=== PATIENT | female | born 1990 | race Caucasian/White ===

== ENCOUNTER 2017-12-23 20:24 | Emergency (ER) | payer MEDICAID ==
[~2017-12-23] VITALS: Ht 160 cm; Wt 50.0 kg
[~2017-12-23 20:24] MED LIST: NO HOME MEDS; ONDA8TAB9 PO
[2017-12-23 21:18] LABS: BASOPHILS # (AUTO) 0.1 X10'3 (0-0.2); BASOPHILS % (AUTO) 1.4 % (0-1); EOSINOPHILS # (AUTO) 0.1 X10'3 (0-0.9); EOSINOPHILS % (AUTO) 1.4 % (0-6); HEMATOCRIT 43.8 % (35.0-45.0); HEMOGLOBIN 15.2 g/dl (12.0-16.0); LYMPHOCYTES # (AUTO) 2.9 X10'3 (1.1-4.8); LYMPHOCYTES % (AUTO) 35.1 % (21-51); MEAN CORPUSCULAR HEMOGLOBIN 31.1 PG (27.0-31.0); MEAN CORPUSCULAR HGB CONC 34.7 % (33.0-36.5); MEAN CORPUSCULAR VOLUME 89.6 FL (78-98); MONOCYTES # (AUTO) 0.4 X10'3 (0-0.9); MONOCYTES % (AUTO) 4.8 % (2-12); NEUTROPHILS # (AUTO) 4.8 X10'3 (1.8-7.7); NEUTROPHILS % (AUTO) 57.3 % (42-75); PLATELET COUNT 168 X10'3 (140-440); RED BLOOD COUNT 4.89 X10'6 (4.20-5.60); RED CELL DISTRIBUTION WIDTH 13.1 % (11.5-14.5); WHITE BLOOD COUNT 8.3 X10'3 (4.5-11.0)
[2017-12-23 21:19] LABS: URINE HCG NEGATIVE (NEG)
[2017-12-23 21:22] LABS: CLARITY,URINE SLIGHTLY CLOUDY (Clear); COLOR,URINE YELLOW (Yellow); GLUCOSE, URINE NEGATIVE (Neg); KETONES,URINE NEGATIVE (Neg); LEUKOCYTE ESTERASE ,URINE NEGATIVE (Neg); NITRITES, URINE NEGATIVE (Neg); OCCULT BLOOD,URINE NEGATIVE (Neg); PROTEIN,URINE NEGATIVE (Neg); UROBILINOGEN,URINE 0.2 E.U/dL (0.2-1.0)
[2017-12-23 21:28] LABS: PROTHROMBIN TIME 10.8 SECONDS (9.0-12.0)
[2017-12-23 21:31] LABS: AMORPHOUS PHOSPHATES 3+; BACTERIA,URINE FEW /HPF (Neg); RBC,URINE NONE SEEN /HPF (0-2); SQUAMOUS EPITHELIAL CELL,UR FEW /LPF (FEW); UA COLLECTION TYPE CLN CATCH MIDSTREAM; WBC,URINE NONE SEEN /HPF (0-4)
[2017-12-23 21:37] LABS: ALANINE AMINOTRANSFERASE 23 U/L (12-78); ALBUMIN 4.6 G/DL (3.4-5.0); ALBUMIN/GLOBULIN RATIO 1.4 (1.1-1.5); ALKALINE PHOSPHATASE 51 IU/L (46-116); ANION GAP 9 (8-16); ASPARTATE AMINO TRANSFERASE 18 U/L (10-37); BILIRUBIN,TOTAL 0.5 MG/DL (0.1-1.0); BLOOD UREA NITROGEN 13 MG/DL (7-18); BUN/CREATININE RATIO 15.1 (6.6-38.0); CALCIUM 9.2 MG/DL (8.5-10.1); CHLORIDE 104 MMOL/L (99-107); CREATININE 0.86 MG/DL (0.40-0.90); GLUCOSE 103 MG/DL (70-104); POTASSIUM 3.6 MMOL/L (3.5-5.1); SODIUM 142 MMOL/L (135-145); TOTAL CARBON DIOXIDE 29.3 MMOL/L (24-32); TOTAL PROTEIN 7.8 G/DL (6.4-8.2); eGFR 80 ML/MIN
[2017-12-23 23:28] LABS: LIPASE 228 U/L (73-393)
[2017-12-23 23:49] VITALS: BP 119/64
== END 2017-12-23 23:50 | disposition home or self-care (01) ==
LOC: ER 20:25
DX: R10.13 Epigastric pain (principal); R11.0 Nausea; R19.7 Diarrhea, unspecified; F17.200 Nicotine dependence, unspecified, uncomplicated; J45.909 Unspecified asthma, uncomplicated; Z79.899 Other long term (current) drug therapy
CPT/HCPCS: 36415; 80053; 81001; 81025; 83690; 85025; 85610; 99284

== ENCOUNTER 2018-06-16 12:27 | Emergency (ER) | payer MEDICAID ==
[~2018-06-16] VITALS: Ht 160 cm; Wt 47.5 kg
[2018-06-16] MEDS ORDERED: normal saline 1000ML IV soln IVB ONE ×2 (13:05→13:45)
[2018-06-16] MEDS ORDERED: ondansetron/PF 4mg/2ml inj IV ONE (13:05)
[2018-06-16 13:16] LABS: BASOPHILS # (AUTO) 0.1 X10'3 (0-0.2); BASOPHILS % (AUTO) 0.4 % (0-1); EOSINOPHILS # (AUTO) 0.3 X10'3 (0-0.9); EOSINOPHILS % (AUTO) 1.4 % (0-6); HEMOGLOBIN 15.1 g/dl (12.0-16.0); LYMPHOCYTES # (AUTO) 3.3 X10'3 (1.1-4.8); LYMPHOCYTES % (AUTO) 16.2 % (21-51); MEAN CORPUSCULAR HEMOGLOBIN 30.6 PG (27.0-31.0); MEAN CORPUSCULAR HGB CONC 33.6 % (33.0-36.5); MEAN PLATELET VOLUME 8.9 FL (7.4-10.4); MONOCYTES # (AUTO) 0.5 X10'3 (0-0.9); MONOCYTES % (AUTO) 2.4 % (2-12); NEUTROPHILS # (AUTO) 16.2 X10'3 (1.8-7.7); NEUTROPHILS % (AUTO) 79.6 % (42-75); PLATELET COUNT 211 X10'3 (140-440); RED BLOOD COUNT 4.95 X10'6 (4.20-5.60); RED CELL DISTRIBUTION WIDTH 13.2 % (11.5-14.5); WHITE BLOOD COUNT 20.3 X10'3 (4.5-11.0)
[2018-06-16 13:29] LABS: INR 1.1 INR; PROTHROMBIN TIME 10.8 SECONDS (9.0-12.0)
[2018-06-16 13:30] LABS: ALANINE AMINOTRANSFERASE 31 U/L (12-78); ALBUMIN 4.8 G/DL (3.4-5.0); ALBUMIN/GLOBULIN RATIO 1.4 (1.1-1.5); ALKALINE PHOSPHATASE 56 IU/L (46-116); ANION GAP 19 (8-16); ASPARTATE AMINO TRANSFERASE 35 U/L (10-37); BILIRUBIN,TOTAL 0.7 MG/DL (0.1-1.0); BLOOD UREA NITROGEN 14 MG/DL (7-18); BUN/CREATININE RATIO 18.4 (6.6-38.0); CALCIUM 9.3 MG/DL (8.5-10.1); CHLORIDE 104 MMOL/L (99-107); CREATININE 0.76 MG/DL (0.40-0.90); GLUCOSE 69 MG/DL (70-104); POTASSIUM 3.6 MMOL/L (3.5-5.1); SODIUM 143 MMOL/L (135-145); TOTAL CARBON DIOXIDE 20.2 MMOL/L (24-32); TOTAL PROTEIN 8.3 G/DL (6.4-8.2); eGFR > 90 ML/MIN
[2018-06-16 13:31] LABS: ETHANOL < 0.010 GM/DL (0.0-0.010); LIPASE 112 U/L (73-393)
[2018-06-16] MEDS ORDERED: proCHLORperazine 10 MG/2 ml inj IV ONE (13:45)
[2018-06-16] MEDS ORDERED: ONDA8TAB9 PO (14:51)
[2018-06-16 15:05] VITALS: BP 122/72
== END 2018-06-16 15:07 | disposition home or self-care (01) ==
LOC: ER 12:27
DX: R11.2 Nausea with vomiting, unspecified (principal); J45.909 Unspecified asthma, uncomplicated; Z86.69 Personal history of other diseases of the nervous system and sense organs; Z79.899 Other long term (current) drug therapy
CPT/HCPCS: 36415; 80053; 80320; 83690; 85025; 85610; 96360; 96361; 99285; J0780; J2405

== ENCOUNTER 2018-08-18 15:15 | Emergency (ER) | payer MEDICAID ==
[~2018-08-18] VITALS: Ht 157.5 cm; Wt 49.2 kg
[2018-08-18] MEDS: ipratropium/albuterol 3ml nebule NEB ONE (17:57)
[2018-08-18 18:12] LABS: BASOPHILS % (AUTO) 0.5 % (0-1); EOSINOPHILS % (AUTO) 0.1 % (0-6); HEMATOCRIT 45.1 % (35.0-45.0); HEMOGLOBIN 14.9 g/dl (12.0-16.0); LYMPHOCYTES # (AUTO) 0.8 X10'3 (1.1-4.8); MEAN CORPUSCULAR HEMOGLOBIN 29.7 PG (27.0-31.0); MEAN CORPUSCULAR HGB CONC 33.1 % (33.0-36.5); MEAN CORPUSCULAR VOLUME 89.7 FL (78-98); MONOCYTES # (AUTO) 0.5 X10'3 (0-0.9); MONOCYTES % (AUTO) 6.5 % (2-12); NEUTROPHILS # (AUTO) 6.8 X10'3 (1.8-7.7); NEUTROPHILS % (AUTO) 82.9 % (42-75); PLATELET COUNT 159 X10'3 (140-440); RED BLOOD COUNT 5.03 X10'6 (4.20-5.60); RED CELL DISTRIBUTION WIDTH 12.6 % (11.5-14.5); WHITE BLOOD COUNT 8.1 X10'3 (4.5-11.0)
[2018-08-18] MEDS: normal saline 1000ML IV soln IV ONE (18:12)
[2018-08-18] MEDS: methylPREDNISolone sod succ 125mg/2ml vial IV ONE (18:13)
[2018-08-18] MEDS: acetaminophen 325mg tablet PO ONE (18:13)
[2018-08-18] MEDS: acetaminophen 325mg tablet PO STA (18:14)
[2018-08-18 18:24] LABS: ALANINE AMINOTRANSFERASE 18 U/L (12-78); ALBUMIN 4.1 G/DL (3.4-5.0); ALBUMIN/GLOBULIN RATIO 1.1 (1.1-1.5); ALKALINE PHOSPHATASE 54 IU/L (46-116); ANION GAP 11 (8-16); ASPARTATE AMINO TRANSFERASE 16 U/L (10-37); BILIRUBIN,TOTAL 0.4 MG/DL (0.1-1.0); BLOOD UREA NITROGEN 8 MG/DL (7-18); BUN/CREATININE RATIO 8.9 (6.6-38.0); CALCIUM 8.8 MG/DL (8.5-10.1); CHLORIDE 98 MMOL/L (99-107); GLUCOSE 94 MG/DL (70-104); POTASSIUM 3.6 MMOL/L (3.5-5.1); SODIUM 135 MMOL/L (135-145); TOTAL CARBON DIOXIDE 25.9 MMOL/L (24-32); TOTAL PROTEIN 7.9 G/DL (6.4-8.2); eGFR 75 ML/MIN
[2018-08-18] MEDS: albuterol 2.5 MG/3 ML nebule NEB ONE (19:03)
[2018-08-18 19:54] LABS: URINE HCG NEGATIVE (NEG)
[2018-08-18] MEDS ORDERED: ALBU6.7H INH (20:03)
[2018-08-18] MEDS ORDERED: PRED20TA PO (20:03)
[2018-08-18] MEDS ORDERED: TAM75C PO (20:03)
[2018-08-18] MEDS ORDERED: GUAI473S11 PO (20:03)
[2018-08-18 20:04] LABS: CLARITY,URINE CLEAR (Clear); COLOR,URINE YELLOW (Yellow); UA COLLECTION TYPE CLN CATCH MIDSTREAM
[2018-08-18 20:05] LABS: GLUCOSE, URINE NEGATIVE (Neg); KETONES,URINE TRACE mg/dl (Neg); LEUKOCYTE ESTERASE ,URINE TRACE (Neg); NITRITES, URINE NEGATIVE (Neg); OCCULT BLOOD,URINE NEGATIVE (Neg); PH,URINE 5.5 (4.8-8.0); PROTEIN,URINE NEGATIVE (Neg); UROBILINOGEN,URINE 0.2 E.U/dL (0.2-1.0)
[2018-08-18 20:06] LABS: BACTERIA,URINE FEW /HPF (Neg); MUCUS STRANDS MODERATE /LPF (Neg); RBC,URINE 0-2 /HPF (0-2); SQUAMOUS EPITHELIAL CELL,UR FEW /LPF (FEW); WBC,URINE 0-4 /HPF (0-4)
[2018-08-18] MEDS: oseltamivir phos 75mg capsule PO ONE (20:06)
[2018-08-18 20:07] VITALS: BP 113/71
== END 2018-08-18 20:14 | disposition home or self-care (01) ==
LOC: ER 15:15
DX: J09.X2 Influenza due to identified novel influenza A virus with other respiratory manifestations (principal); J45.901 Unspecified asthma with (acute) exacerbation; F17.200 Nicotine dependence, unspecified, uncomplicated; Z79.899 Other long term (current) drug therapy; Z91.018 Allergy to other foods
CPT/HCPCS: 36415; 71045; 80053; 81001; 81025; 83605; 84145; 85025; 87040; 87088; 87502; 87503; 93005; 94640; 94760; 96361; 96374; 99284; J2930; J7030

== ENCOUNTER 2018-10-20 02:04 | Emergency (ER) | payer MEDICAID ==
[~2018-10-20] VITALS: Ht 160 cm; Wt 50.0 kg
[~2018-10-20 02:04] MED LIST changes: +ALBU6.7H INH
[2018-10-20 02:49] LABS: CLARITY,URINE CLEAR (Clear); COLOR,URINE YELLOW (Yellow); GLUCOSE, URINE NEGATIVE (Neg); KETONES,URINE NEGATIVE (Neg); LEUKOCYTE ESTERASE ,URINE LARGE (Neg); NITRITES, URINE NEGATIVE (Neg); OCCULT BLOOD,URINE NEGATIVE (Neg); PH,URINE 5.5 (4.8-8.0); PROTEIN,URINE NEGATIVE (Neg); UROBILINOGEN,URINE 0.2 E.U/dL (0.2-1.0)
[2018-10-20 02:52] LABS: URINE HCG NEGATIVE (NEG)
[2018-10-20 02:59] LABS: ALANINE AMINOTRANSFERASE 14 U/L (12-78); ALBUMIN 4.2 G/DL (3.4-5.0); ALBUMIN/GLOBULIN RATIO 1.4 (1.1-1.5); ALKALINE PHOSPHATASE 50 IU/L (46-116); ANION GAP 8 (8-16); ASPARTATE AMINO TRANSFERASE 13 U/L (10-37); BILIRUBIN,TOTAL 0.3 MG/DL (0.1-1.0); BLOOD UREA NITROGEN 11 MG/DL (7-18); BUN/CREATININE RATIO 14.1 (6.6-38.0); CALCIUM 9.2 MG/DL (8.5-10.1); CHLORIDE 103 MMOL/L (99-107); CREATININE 0.78 MG/DL (0.40-0.90); GLUCOSE 99 MG/DL (70-104); POTASSIUM 3.6 MMOL/L (3.5-5.1); SODIUM 137 MMOL/L (135-145); TOTAL CARBON DIOXIDE 25.8 MMOL/L (24-32); TOTAL PROTEIN 7.3 G/DL (6.4-8.2); eGFR 89 ML/MIN
[2018-10-20 03:00] LABS: UA COLLECTION TYPE CLN CATCH MIDSTREAM
[2018-10-20 03:03] LABS: INR 1.1 INR; PROTHROMBIN TIME 10.8 SECONDS (9.0-12.0)
[2018-10-20 03:03] LABS: BACTERIA,URINE FEW /HPF (Neg); MUCUS STRANDS NONE SEEN /LPF (Neg); RBC,URINE NONE SEEN /HPF (0-2); SQUAMOUS EPITHELIAL CELL,UR MODERATE /LPF (FEW)
[2018-10-20 03:29] LABS: BASOPHILS # (AUTO) 0.1 X10'3 (0-0.2); EOSINOPHILS # (AUTO) 0.1 X10'3 (0-0.9); EOSINOPHILS % (AUTO) 1.6 % (0-6); HEMATOCRIT 42.2 % (35.0-45.0); HEMOGLOBIN 14.5 g/dl (12.0-16.0); LYMPHOCYTES # (AUTO) 1.9 X10'3 (1.1-4.8); LYMPHOCYTES % (AUTO) 31.9 % (21-51); MEAN CORPUSCULAR HEMOGLOBIN 30.6 PG (27.0-31.0); MEAN CORPUSCULAR HGB CONC 34.4 g/dL (33.0-36.5); MEAN CORPUSCULAR VOLUME 88.8 FL (78-98); MEAN PLATELET VOLUME 9.2 FL (7.4-10.4); MONOCYTES # (AUTO) 0.4 X10'3 (0-0.9); NEUTROPHILS # (AUTO) 3.4 X10'3 (1.8-7.7); NEUTROPHILS % (AUTO) 58.5 % (42-75); PLATELET COUNT 175 X10'3 (140-440); RED BLOOD COUNT 4.76 X10'6 (4.20-5.60); RED CELL DISTRIBUTION WIDTH 13.4 % (11.5-14.5); WHITE BLOOD COUNT 5.8 X10'3 (4.5-11.0)
[2018-10-20] MEDS ORDERED: morphine 4 MG/ML inj SYRINge IV ONE (04:05)
[2018-10-20] MEDS ORDERED: normal saline 1000ML IV soln IVB ONE (04:05)
[2018-10-20] MEDS ORDERED: morphine 2 MG/ML inj. syringe IV PRN (04:05)
[2018-10-20] MEDS ORDERED: pantoprazole 40 MG vial IV ONE (04:05)
[2018-10-20 04:17] LABS: LIPASE 298 U/L (73-393)
[2018-10-20 04:19] VITALS: BP 102/67
--- NOTE | 2018-10-20 04:20 | NUR ---
PT GIVEN MORPHINE AND PROTONIX IV. FRIENDS AT BEDSIDE AND ARE HELPFUL AND SUPPORTIVE. PT REPORTING PAIN GOING DOWN TO 3 OUT OF 10. LIPASE ADDED ONTO LABS . AWAITING RESULTS.
--- NOTE | 2018-10-20 04:39 | NUR ---
PT REPORTS HER PAIN STILL AT 3 OR 4 AFTER MS[facility] 30 MIN AGO.
== END 2018-10-20 06:15 | disposition home or self-care (01) ==
LOC: ER 02:05
DX: R10.31 Right lower quadrant pain (principal); R10.32 Left lower quadrant pain; J45.909 Unspecified asthma, uncomplicated; F17.200 Nicotine dependence, unspecified, uncomplicated; Z91.018 Allergy to other foods
CPT/HCPCS: 36415; 80053; 81001; 81025; 83690; 85025; 85610; 87088; 96374; 96375; 99283; C9113; J2270; J7030

== ENCOUNTER 2019-05-20 12:54 | Emergency (ER) | payer MEDICAID ==
[~2019-05-20] VITALS: Ht 167.6 cm; Wt 55.0 kg
[~2019-05-20 12:54] MED LIST changes: -ALBU6.7H INH; +ALBU6.7H9 INH
[2019-05-20 13:05] VITALS: BP 124/77
[2019-05-20] MEDS ORDERED: ACET-812 PO (13:45)
[2019-05-20] MEDS ORDERED: acetaminophen 325mg tablet PO ONE (13:45)
[2019-05-20] MEDS ORDERED: amoxicillin 250mg capsule PO ONE (13:45)
[2019-05-20] MEDS ORDERED: HYDR-3965 PO (13:45)
[2019-05-20] MEDS ORDERED: AMOX500C2 PO (13:45)
== END 2019-05-20 13:57 | disposition home or self-care (01) ==
LOC: ER 12:54
DX: K08.89 Other specified disorders of teeth and supporting structures (principal); J45.909 Unspecified asthma, uncomplicated
CPT/HCPCS: 99283

== ENCOUNTER 2019-05-24 14:54 | Emergency (ER) | payer MEDICAID ==
[~2019-05-24] VITALS: Ht 160 cm; Wt 50.0 kg
[~2019-05-24 14:54] MED LIST changes: +ACET-812 PO; +AMOX500C2 PO; +HYDR-3965 PO
[2019-05-24 14:55] VITALS: BP 110/81
[2019-05-24] MEDS ORDERED: LIDOcaine 1% w/EPI 1:200,000 injection 10mL vial IM ONE (15:10)
[2019-05-24] MEDS ORDERED: BUPIVAcaine/PF 2.5mg/ml (0.25%) 10ml vial IJ ONE (15:10)
[2019-05-24] MEDS ORDERED: amox tr/potassium clavulanate 875/125mg TAB PO ONE (15:10)
[2019-05-24] MEDS ORDERED: LIDOcaine 1% W/epiNEPHrine 1:100,000 20ml vial IJ ONE (15:20)
[2019-05-24] MEDS ORDERED: naproxen 500mg tablet PO ONE (15:50)
[2019-05-24] MEDS ORDERED: HYDROcodone/acetaminophen 10/325mg tab PO ONE (15:50)
[2019-05-24] MEDS ORDERED: NAPR-56 PO (16:10)
[2019-05-24] MEDS ORDERED: AMOX-580 PO (16:10)
[2019-05-24] MEDS ORDERED: HYDR-4383 PO (16:10)
== END 2019-05-24 16:26 | disposition home or self-care (01) ==
LOC: ER 14:54
DX: K05.219 Aggressive periodontitis, localized, unspecified severity (principal); K02.9 Dental caries, unspecified; J45.909 Unspecified asthma, uncomplicated; F17.200 Nicotine dependence, unspecified, uncomplicated; Z91.018 Allergy to other foods
CPT/HCPCS: 64400; 99284; J3490

== ENCOUNTER 2019-07-26 14:09 | Emergency (ER) | payer MEDICAID ==
[~2019-07-26] VITALS: Ht 160 cm; Wt 47.3 kg
[~2019-07-26 14:09] MED LIST changes: -AMOX500C2 PO; -HYDR-3965 PO; +HYDR-4383 PO
[2019-07-26 14:12] VITALS: BP 139/83
--- NOTE | 2019-07-26 14:17 | NUR ---
pt seen it triage by dr Cancino
[2019-07-26] MEDS ORDERED: ondansetron 4mg rapidly disintigrating tab PO ONE (14:20)
[2019-07-26] MEDS ORDERED: HYDR-4353 PO (14:20)
[2019-07-26] MEDS ORDERED: HYDROcodone/acetaminophen 10/325mg tab PO ONE (14:20)
[2019-07-26] MEDS ORDERED: ONDA4TAB6 PO (14:20)
--- NOTE | 2019-07-26 14:25 | NUR ---
PT MEDICATED PER MD ORDERS.
[2019-07-27] MEDS ORDERED: CLIN-142 PO (10:20)
== END 2019-07-26 14:33 | disposition home or self-care (01) ==
LOC: ER 14:10
DX: K08.89 Other specified disorders of teeth and supporting structures (principal); R50.9 Fever, unspecified; J45.909 Unspecified asthma, uncomplicated; Z86.69 Personal history of other diseases of the nervous system and sense organs; Z79.899 Other long term (current) drug therapy
CPT/HCPCS: 99283

== ENCOUNTER 2019-07-27 09:37 | Emergency (ER) | payer MEDICAID ==
[~2019-07-27] VITALS: Ht 160 cm; Wt 47.7 kg
[~2019-07-27 09:37] MED LIST changes: +HYDR-4353 PO; +ONDA4TAB6 PO
[2019-07-27 09:48] VITALS: BP 112/67
[2019-07-27] MEDS ORDERED: CLIN-142 PO (10:20)
== END 2019-07-27 10:27 | disposition home or self-care (01) ==
LOC: ER 09:37
DX: K04.7 Periapical abscess without sinus (principal); J45.909 Unspecified asthma, uncomplicated; F10.99 Alcohol use, unspecified with unspecified alcohol-induced disorder; Z86.69 Personal history of other diseases of the nervous system and sense organs; Z79.899 Other long term (current) drug therapy; Y90.9 Presence of alcohol in blood, level not specified
CPT/HCPCS: 99283

== ENCOUNTER 2019-07-28 15:09 | Emergency (ER) | payer MEDICAID ==
[~2019-07-28] VITALS: Ht 160 cm; Wt 44.0 kg
[~2019-07-28 15:09] MED LIST changes: +CLIN-142 PO
[2019-07-28 15:18] VITALS: BP 109/76
== END 2019-07-28 16:52 | disposition home or self-care (01) ==
LOC: ER 15:10
DX: K04.7 Periapical abscess without sinus (principal); J45.909 Unspecified asthma, uncomplicated; Z86.69 Personal history of other diseases of the nervous system and sense organs; Z79.2 Long term (current) use of antibiotics; Z79.899 Other long term (current) drug therapy
CPT/HCPCS: 41800; 99283

== ENCOUNTER 2020-01-02 11:26 | Emergency (ER) | payer MEDICAID ==
[~2020-01-02] VITALS: Ht 160 cm; Wt 50.0 kg
[~2020-01-02 11:26] MED LIST changes: -CLIN-142 PO; -HYDR-4353 PO
[2020-01-02 11:36] VITALS: BP 117/69
[2020-01-02] MEDS ORDERED: HYDROcodone/acetaminophen 10/325mg tab PO ONE (12:05)
[2020-01-02] MEDS ORDERED: HYDR-4353 PO (12:08)
[2020-01-02] MEDS ORDERED: PENI500T2 PO (12:08)
== END 2020-01-02 12:37 | disposition home or self-care (01) ==
LOC: ER 11:27
DX: K04.7 Periapical abscess without sinus (principal); J45.909 Unspecified asthma, uncomplicated; F17.200 Nicotine dependence, unspecified, uncomplicated; F12.90 Cannabis use, unspecified, uncomplicated; Z86.69 Personal history of other diseases of the nervous system and sense organs; Z79.899 Other long term (current) drug therapy
CPT/HCPCS: 99283

== ENCOUNTER 2020-12-14 11:03 | Emergency (ER) | payer MEDICAID ==
[~2020-12-14] VITALS: Ht 160 cm; Wt 45.9 kg
[2020-12-14 11:20] VITALS: BP 137/77
== END 2020-12-14 12:10 | disposition left against medical advice (07) ==
LOC: ER 11:04
DX: K08.89 Other specified disorders of teeth and supporting structures (principal); Z53.21 Procedure and treatment not carried out due to patient leaving prior to being seen by health care provider

== ENCOUNTER 2022-12-07 08:32 | Emergency (ER) | payer MEDICAID ==
[~2022-12-07] VITALS: Ht 160 cm; Wt 49.0 kg
[~2022-12-07 08:32] MED LIST changes: +ALBU6.7H14 INH; -ALBU6.7H9 INH
[2022-12-07 08:34] VITALS: BP 96/60
[2022-12-07] MEDS ORDERED: ibuprofen tablet 400 MG TABLET PO ONE (09:00)
[2022-12-07] MEDS ORDERED: clindamycin 150mg capsule PO ONE (09:00)
[2022-12-07] MEDS ORDERED: CLIN-97 PO (09:12)
[2022-12-07] MEDS ORDERED: IBUP-1986 PO (09:12)
== END 2022-12-07 09:22 | disposition home or self-care (01) ==
LOC: ER 08:32
DX: K04.7 Periapical abscess without sinus (principal); J45.909 Unspecified asthma, uncomplicated; F12.10 Cannabis abuse, uncomplicated; Z88.8 Allergy status to other drugs, medicaments and biological substances; Z91.018 Allergy to other foods; Z79.1 Long term (current) use of non-steroidal anti-inflammatories (NSAID); Z79.2 Long term (current) use of antibiotics
CPT/HCPCS: 99283

== ENCOUNTER 2022-12-26 09:41 | Emergency (ER) | payer MEDICAID ==
[~2022-12-26] VITALS: Ht 160 cm; Wt 50.4 kg
[~2022-12-26 09:41] MED LIST changes: +CLIN-97 PO; +IBUP-1986 PO
[2022-12-26 09:45] VITALS: BP 104/68
[2022-12-26] MEDS ORDERED: LIDOcaine 1% W/epiNEPHrine 1:100,000 20ml vial IJ ONE (12:30)
[2022-12-26] MEDS ORDERED: ketorolac tromethamine 15mg/ml inj. IM ONE (13:10)
[2022-12-26] MEDS ORDERED: HYDR-3973 PO (13:12)
[2022-12-26] MEDS ORDERED: AMOX-117 PO (13:12)
[2022-12-26] MEDS ORDERED: HYDROcodone/acetaminophen 5mg/325mg tablet PO ONE (13:20)
== END 2022-12-26 13:31 | disposition home or self-care (01) ==
LOC: ER 09:41
DX: K04.7 Periapical abscess without sinus (principal); K08.89 Other specified disorders of teeth and supporting structures; J45.909 Unspecified asthma, uncomplicated; F12.90 Cannabis use, unspecified, uncomplicated; Z91.018 Allergy to other foods
CPT/HCPCS: 99283